=== PATIENT | female | born 1960 | race African-American/Black ===

== ENCOUNTER 2019-12-11 08:28 | Emergency (ER) | payer SELFPAY ==
--- NOTE | 2019-12-11 09:16 | ER Document Report ---
ED Medical Screen (RME) - General Chief Complaint: Back Pain Stated Complaint: HEAD,NECK,SHOULDER PAIN Time Seen by Provider: 12/11/19 09:10 TRAVEL OUTSIDE OF THE [place] IN LAST 30 DAYS: No - HPI Notes: 12/11/19 09:14 59-year-old female to the emergency department with complaints of chest pain, bilateral shoulder pain and back pain that started 2 weeks ago. She states is episodic. She states that her sister gave her some Mylanta at one point and that did help. She states however that it keeps coming back. She denies any shortness of breath, nausea, vomiting, diaphoresis. She does not smoke. She has no medical history. She is allergic to aspirin. I placed a brief medical screening exam on the patient determined that she will need further evaluation and management by me inside provider. I placed initial orders to help expedite in her care. - Related Data Allergies/Adverse Reactions: aspirin Allergy (Mild, Verified 12/11/19 08:54) Nausea Past Medical History - Social History Chew tobacco use (# tins/day): Yes Frequency of alcohol use: None Drug Abuse: None Physical Exam - Vital signs Vitals: Temp Pulse Resp BP Pulse Ox 97.4 F 90 20 152/77 H 99 12/11/19 08:38 12/11/19 08:38 12/11/19 08:38 12/11/19 08:38 12/11/19 08:38 Course - Vital Signs Vital signs: Temp Pulse Resp BP Pulse Ox 97.4 F 90 20 152/77 H 99 12/11/19 08:38 12/11/19 08:38 12/11/19 08:38 12/11/19 08:38 12/11/19 08:38
[2019-12-11 09:58] LABS: ABSOLUTE EOSINOPHILS # (AUTO) 0.1 10^3/uL (0.0-0.6); ABSOLUTE LYMPHOCYTES (AUTO) 1.3 10^3/uL (0.5-4.7); ABSOLUTE MONOCYTES (AUTO) 0.4 10^3/uL (0.1-1.4); ABSOLUTE NEUT (AUTO) 2.9 10^3/uL (1.7-8.2); BASOPHILS % (AUTO) 0.8 % (0-2); EOSINOPHILS % (AUTO) 2.6 % (0-6); HEMATOCRIT 38.2 % (36.0-47.0); HEMOGLOBIN 12.4 g/dL (12.0-15.5); LYMPHOCYTES % (AUTO) 26.6 % (13-45); MEAN CORPUSCULAR HEMOGLOBIN 25.8 pg (27.0-33.4); MEAN CORPUSCULAR HGB CONC 32.5 g/dL (32.0-36.0); MEAN CORPUSCULAR VOLUME 79 fl (80-97); MONOCYTES % (AUTO) 9.4 % (3-13); PLATELET COUNT 316 10^3/uL (150-450); RED BLOOD COUNT 4.82 10^6/uL (3.72-5.28); SEGMENTED NEUTROPHILS % (AUTO) 60.6 % (42-78); TOTAL CELLS COUNTED % (AUTO) 100 %; WHITE BLOOD COUNT 4.7 10^3/uL (4.0-10.5)
[2019-12-11 10:22] LABS: ALBUMIN 4.4 g/dL (3.5-5.0); ALKALINE PHOSPHATASE 73 U/L (38-126); ANION GAP 8 (5-19); ASPARTATE AMINO TRANSFERASE 30 U/L (14-36); BILIRUBIN,TOTAL 0.8 mg/dL (0.2-1.3); BLOOD UREA NITROGEN 8 mg/dL (7-20); CALCIUM 9.3 mg/dL (8.4-10.2); CARBON DIOXIDE 30 mmol/L (22-30); CHLORIDE 103 mmol/L (98-107); GLUCOSE 98 mg/dL (75-110); POTASSIUM 3.9 mmol/L (3.6-5.0); TOTAL PROTEIN 8.3 g/dL (6.3-8.2)
--- NOTE | 2019-12-11 10:35 | RADIOLOGY REPORT (SQ) ---
EXAM DESCRIPTION: CHEST 2 VIEWS COMPLETED DATE/TIME: 12/11/2019 10:07 am REASON FOR STUDY: chest pain COMPARISON: None. EXAM PARAMETERS: NUMBER OF VIEWS: two views TECHNIQUE: Digital Frontal and Lateral radiographic views of the chest acquired. RADIATION DOSE: NA LIMITATIONS: none FINDINGS: LUNGS AND PLEURA: No opacities, masses or pneumothorax. No pleural effusion. MEDIASTINUM AND HILAR STRUCTURES: No masses or contour abnormalities. HEART AND VASCULAR STRUCTURES: Heart normal size. No evidence for failure. BONES: No acute findings. HARDWARE: None in the chest. OTHER: No other significant finding. IMPRESSION: NO ACUTE RADIOGRAPHIC FINDING IN THE CHEST. TECHNICAL DOCUMENTATION: JOB ID: [id number] [employer]- All Rights Reserved Reading location - IP/workstation name: [email or web address]
--- NOTE | 2019-12-11 11:03 | ER Document Report ---
ED General - General Chief Complaint: Back Pain Stated Complaint: HEAD,NECK,SHOULDER PAIN Time Seen by Provider: 12/11/19 09:10 TRAVEL OUTSIDE OF THE [place] IN LAST 30 DAYS: No - HPI Notes: Martina Damon is a 59-year-old female presenting with a chief complaint of insidious onset of arthralgias over several months. She complains of soreness and stiffness in her neck back in all 4 extremities. No trauma. Patient is really never been under the care of a doctor in the past. She has been taking some [id number] Aleve with some relief of her symptoms. No other specific complaints at this time. Patient is accompanied by her sister. Sister explains that the patient has some degree of developmental delay and is never really had any medical attention. - Related Data Allergies/Adverse Reactions: aspirin Allergy (Mild, Verified 12/11/19 08:54) Nausea Past Medical History - General Information source: Patient, Relative - Social History Smoking Status: Never Smoker Chew tobacco use (# tins/day): Yes Frequency of alcohol use: None Drug Abuse: None Family History: Reviewed & Not Pertinent Patient has suicidal ideation: No Patient has homicidal ideation: No Review of Systems - Review of Systems Notes: Constitutional: Negative for fever. HENT: Negative for sore throat. Eyes: Negative for visual changes. Cardiovascular: Negative for chest pain. Respiratory: Negative for shortness of breath. Gastrointestinal: Negative for abdominal pain, vomiting or diarrhea. Genitourinary: Negative for dysuria. Musculoskeletal: As per HPI. Skin: Negative for rash. Neurological: Negative for headaches, weakness or numbness. 10 point ROS negative except as marked above and in HPI. Physical Exam - Vital signs Vitals: Temp Pulse Resp BP Pulse Ox 97.4 F 90 20 152/77 H 99 12/11/19 08:38 12/11/19 08:38 12/11/19 08:38 12/11/19 08:38 12/11/19 08:38 - Notes Notes: GENERAL: Slender female of approximately stated age. Well-developed well- nourished appearing in no acute distress. SKIN: Good turgor no rashes. HEAD: Normocephalic atraumatic. EYES: PERRLA. EOMI. Conjunctivae and sclerae clear. EARS: CANALS AND TMS CLEAR. NOSE: CLEAR. MOUTH: Moist mucosa. Extremely poor dentition with multiple decayed teeth. No stridor or edema. No drooling. NECK: Supple. No masses or thyromegaly. No adenopathy. Carotids 2+ without bruits. No JVD. BACK: Symmetrical with mild diffuse tenderness. CHEST: Respirations unlabored. Breath sounds clear and symmetrical. HEART: Regular rhythm. No murmur gallop or rub. ABDOMEN: Soft nontender without masses, organomegaly or rebound. Bowel sounds normally active. No bruits. GENITALIA: Deferred. EXTREMITIES: Mild degenerative changes of inner phalangeal joints of both hands. No edema. No calf tenderness. Cap refill less than 1.5 seconds. Dorsalis pedis and posterior tibial pulses 3+ and symmetrical. NEUROLOGICAL: GCS 15. Alert and oriented x3. Normal gait. Fluent speech. Cranial nerves II through XII intact. Sensorimotor and cerebellar normal. Normal tone. PSYCHIATRIC: Appropriate affect. Course - Re-evaluation Re-evalutation: 12/11/19 11:02 Findings are suggestive of mild degenerative arthritis. We will make a primary care referral and start the patient on ibuprofen at home. - Vital Signs Vital signs: Temp Pulse Resp BP Pulse Ox 97.4 F 90 20 152/77 H 99 12/11/19 08:38 12/11/19 08:38 12/11/19 08:38 12/11/19 08:38 12/11/19 08:38 - Laboratory Result Diagrams: 12/11/19 09:40 12/11/19 09:40 Laboratory results interpreted by me: 12/11/19 12/11/19 09:40 09:40 MCV 79 L MCH 25.8 L Total Protein 8.3 H - Diagnostic Test Radiology reviewed: Reports reviewed - Normal chest x-ray per radiologist. - EKG Interpretation by Me Additional EKG results interpreted by me: 12/11/19 11:01 Twelve-lead EKG reviewed contemporaneously by me shows normal sinus rhythm with a heart rate of 68. Normal axis. Diffuse nonspecific T wave changes. No acute ST shift. Discharge - Discharge Clinical Impression: Osteoarthritis Qualifiers: Osteoarthritis location: unspecified site Osteoarthritis type: primary Qualified Code(s): M19.91 - Primary osteoarthritis, unspecified site Condition: Stable Disposition: HOME, SELF-CARE Additional Instructions: Osteoarthritis Your symptoms are due to osteoarthritis. Osteoarthritis is inflammation caused by "wear and tear" of the joints. There is no cure for osteoarthritis, but medicine can help the pain and stiffness. It's important to keep the joints moving. Move the joints through their full range daily. Light exercise helps, but if exercise hurts, switch to a non-impact exercise like swimming. Local warmth may help ease pain. Call or return if any joint becomes severely swollen or increasingly painful, or if you have fever or spreading redness. Schedule appointment with clinic for follow-up as we have discussed. Take prescribed medication. Return here as needed for new or worsening symptoms. Prescriptions: Ibuprofen [Motrin 600 mg Tablet] 600 mg PO Q8HP PRN 30 Days #90 tablet PRN Reason: Referrals: [facility] [Provider Group] - Follow up as needed
[2019-12-11 11:25] VITALS: BP 139/83
--- NOTE | 2019-12-12 13:05 | EKG REPORT ---
SEVERITY:- ABNORMAL ECG - SINUS RHYTHM RAA, CONSIDER BIATRIAL ABNORMALITIES BORDERLINE T ABNORMALITIES, INFERIOR LEADS BORDERLINE PROLONGED QT INTERVAL : Confirmed by: Colby He 12-Dec-2019 13:04:16
== END 2019-12-11 11:23 | disposition home or self-care (01) ==
LOC: ER 08:28
DX: M19.91 Primary osteoarthritis, unspecified site (principal); M54.9 Dorsalgia, unspecified; M54.2 Cervicalgia; R51 Headache; M25.519 Pain in unspecified shoulder; Z88.6 Allergy status to analgesic agent
CPT/HCPCS: 36415; 71046; 80053; 84484; 85025; 93005; 93010